=== PATIENT | female | born 1995 | race Caucasian/White ===

== ENCOUNTER 2020-11-08 21:41 | Emergency (ER) | payer BC, SELFPAY ==
[2020-11-08 21:48] VITALS: BP 103/66; PULSE 86; RESP 18; TEMP 36.2; O2SAT 99
--- NOTE | 2020-11-08 23:42 | ED.SKABFB ---
HPI - Skin/Abscess/Foreign Bdy General Chief complaint: Skin/Abscess/Foreign Body Stated complaint: infected skin tag removal site Time Seen by Provider: 11/08/20 23:19 Source: patient Mode of arrival: ambulatory Limitations: no limitations History of Present Illness HPI narrative: This is a 24 year old female with history of DM 1 who presents for evaluation of possible skin infection. She states 1 week ago she had a skin tag removed from under her right breast. She states this was performed by a surgeon with [facility]. She noticed 2 days she was having increasing pain at site of skin tag removal. She describes it has burning pain. She denies purulent drainage, fever, chills, nausea, vomiting or weakness. She states her blood sugar is normally poorly control. Related Data Allergies Allergy/AdvReac Type Severity Reaction Status Date / Time No Known Allergies Allergy Verified 11/08/20 23:42 Review of Systems Review of Systems: All systems reviewed & are unremarkable except as noted in HPI and below Constitutional: Constitutional: Denies chills and Denies fever(s) Cardiovascular: Cardiovascular: Denies chest pain Respiratory: Respiratory: Denies cough and Denies dyspnea Gastrointestinal: Gastrointestinal: Denies abdominal pain, Denies diarrhea, Denies nausea and Denies vomiting PMF Past Medical History Medical History (Updated 11/08/20 @ 23:51 by Vale Dela Cruz MD) Diabetes mellitus type 1 Surgical History Surgical History (Updated 11/08/20 @ 23:43 by Vale Dela Cruz MD) No pertinent past surgical history Exam Const: General: healthy appearing, no acute distress and alert Orientation/consciousness: patient oriented x3 Eyes: EOM: EOMs intact bilaterally Chest: Chest palpation & inspection: normal inspection of the chest Resp: Effort & Inspection: normal respiratory effort Skin: Other: There is small wound under right breast along bra line that is approximately 1 cm. There is mild erythema surrounding with newman color wound no drainage. No fluctuance, no induration Neuro: General: patient oriented x3 and moves all extremities Extrem: General: normal to inspection Psych: Mental Status: mental status grossly normal Affect: normal affect Course Reevaluation(s) Reevaluation #1: I have discussed with patient that she will be treated with antibiotics. She is aware she will need to follow up with her surgeon for wound reevaluation. She appears well. Date: 11/08/20 Time: 23:48 Vital Signs Vital signs: Vital Signs Temperature 97.2 F L 11/08/20 21:48 Pulse Rate 86 11/08/20 21:48 Respiratory Rate 18 11/08/20 21:48 Blood Pressure 103/66 11/08/20 21:48 Pulse Oximetry 99 11/08/20 21:48 Temperature 97.4 F L 11/09/20 00:43 Pulse Rate 78 11/09/20 00:43 Respiratory Rate 16 11/09/20 00:43 Blood Pressure 112/73 11/09/20 00:43 Pulse Oximetry 99 11/09/20 00:43 Discharge Plan Discharge Clinical Impression: Infected wound Patient Disposition: Home, Self-Care Condition: Stable Instructions: Antibiotic Form, Surgical Site Infections (ED) Additional Instructions: Please call your primary care provider or your surgeon tomorrow to arrange for reevaluation of your wound within the next 3 days. Take medication as prescribed. If you develop fever, weakness, vomiting or worsening symptoms you will need to go to an ER. Continue to clean your wound wit mild soap and water. Apply bandage to prevent rubbing from your bra. Prescriptions: New sulfamethoxazole-trimethoprim [Bactrim DS] 800-160 mg tablet 1 tablet PO Q12H Qty: 20 RF: 0 Follow-up/Referrals: UNKNOWN,DOCTOR [Primary Care Provider] -
[2020-11-09 00:43] VITALS: BP 112/73; PULSE 78; RESP 16; TEMP 36.3; O2SAT 99
== END 2020-11-09 00:44 | disposition home or self-care (01) ==
PROVIDERS: Emergency Provider General Practice
DX: T81.41XA Infection following a procedure, superficial incisional surgical site, initial encounter (principal); E10.9 Type 1 diabetes mellitus without complications
CPT/HCPCS: 99283; A9270

== ENCOUNTER 2020-11-17 20:38 | Emergency (ER) | payer BC, SELFPAY ==
[2020-11-17] VITALS (8 sets, daily range): BP systolic 100–120; BP diastolic 61–71; PULSE 75–97; RESP 13–26; TEMP 35.9; O2SAT 96–99
--- NOTE | ~2020-11-17 | XR_ITS ---
EXAMINATION: XR chest 2V DATE: 11/17/2020 21:44 INDICATION: Left-sided chest pain TECHNIQUE: PA and lateral views of the chest are obtained. COMPARISON: None available FINDINGS: The lungs are free of acute opacities. There is no pleural effusion or pneumothorax. The ca rdiomediastinal silhouette is normal. The visualized bones and soft tissues are unremarkable. IMPRESSION: 1. No acute cardiopulmonary abnormality. Reviewed, dictated and finalized at location A.
--- NOTE | 2020-11-17 20:55 | PC.NURSE ---
Patient reporting that her blood sugars have been running in the 300-400 range-she takes insulin but has not been checking blood regularly because I'm low on strips and have to wait for insurance .
--- NOTE | 2020-11-17 21:34 | ECG_ITS ---
Measurements Intervals Petros Rate: 93 P: 55 MI: 157 QRS: 43 QRSD: 90 T: 31 QT: 338 QTc: 421 Interpretive Statements SINUS RHYTHM POSSIBLE LEFT ATRIAL ENLARGEMENT MINIMAL Q WAVES- ANTEROLAT/INF LEADS NONSPECIFIC ST ELEVATION IN DIFFUSE LEADS BASELINE ARTIFACT- V1 BORDERLINE ECG Electronically Signed On 11-18-2020 7:13:28 CDT by Ming Wheat D.O.
--- NOTE | 2020-11-17 21:46 | PC.NURSE ---
verbal report to Byron-care of patient turned over
[2020-11-17 22:15] LABS: Basophils Percent Auto 0.4 % (0.2-1.2); Eosinophils Absolute Auto 0.1 K/mm3 (0-0.3); Eosinophils Percent Auto 1.5 % (0-4.4); Hemoglobin 14.1 g/dL (12.0-15.0); Immature Granulocyte Absolute 0.01 K/mm3 (0.00-0.031); Immature Granulocyte Percent A 0.2 % (0-0.5); Immature Platelet Fraction Pct 13.6 % (0.9-11.2); Lymphocytes Percent Auto 30.3 % (18.3-44.2); Mean Corpuscular HGB Conc 34.4 g/dl (32-36); Mean Corpuscular Hemoglobin 29.4 pg (26-34); Mean Corpuscular Volume 85.6 fl (80-100); Mean Platelet Volume 13.2 fl (7.4-10.4); Monocytes Absolute Auto 0.4 K/mm3 (0.1-0.6); Neutrophils Absolute Auto 2.8 K/mm3 (1.3-6.7); Neutrophils Percent Auto 59.6 % (45.5-73.1); Platelet Count Result 179 k/mm3 (150-375); Red Blood Count 4.79 M/mm3 (4.2-5.4); Red Cell Distribution Width 12.8 % (11.5-14.5); White Blood Count 4.6 K/mm3 (4.5-10.0)
[2020-11-17] MEDS: KETOROLAC (*BKC) 60 MG/2 ML VIAL IM (22:20)
[2020-11-17 22:23] LABS: Potassium 4.4 mmol/L (3.4-5.0)
[2020-11-17 22:29] LABS: Anion Gap 16 mmol/L (8-16); Blood Urea Nitrogen 22 mg/dL (7-17); Calcium 10.2 mg/dL (8.4-10.2); Carbon Dioxide 18 mmol/L (22-30); Chloride 97 mmol/L (98-107); Estimated CRCL calculation 66 ml/min; Estimated Glomerular Filt Rate > 60; Sodium 131 mmol/L (137-145)
[2020-11-17 22:38] LABS: Glucose 623 mg/dL (65-105)
[2020-11-17 22:50] LABS: D Dimer 0.27 ug/mL (<0.48)
--- NOTE | 2020-11-17 23:01 | ED.GENADULT ---
HPI - General Adult General Chief complaint: Unspecified Stated complaint: left rib pain, right leg pain Time Seen by Provider: 11/17/20 20:57 History of Present Illness HPI narrative: Patient is a 24-year-old female who presents ER with left-sided rib pain and right thigh pain. Reports rib pain began today and its intermittent in discomfort. Last 5 minutes at a time. No radiation. Not worsened by taking deep breaths or coughing or exertion. Has not taking pain medication outside of Tylenol. No runny nose/sore throat/productive cough. No hemoptysis. No lower extremity swelling. Patient reports 3 days ago she started having right thigh burning that gets better when she presses her hand against her thigh. No low back pain or trauma. No weakness or numbness lower extremities. Patient reports frequent urination that she thinks is related to her blood sugar. No dysuria or flank pain. Related Data Home Medications Medication Instructions Recorded Confirmed insulin aspart U-100 unit SUBCUT 11/17/20 insulin lispro 11/17/20 Allergies Allergy/AdvReac Type Severity Reaction Status Date / Time No Known Allergies Allergy Verified 11/17/20 20:42 Review of Systems Review of Systems: All systems reviewed & are unremarkable except as noted in HPI and below Constitutional: Constitutional: Denies chills and Denies fever(s) Cardiovascular: Cardiovascular: Reports chest pain (chest wall under left breast), Denies chest pain with activity, Denies rapid heart rate and Denies pedal edema Respiratory: Respiratory: Denies cough, Denies hemoptysis, Denies pain on inspiration and Denies dyspnea Gastrointestinal: Gastrointestinal: Denies abdominal pain, Denies nausea and Denies vomiting Genitourinary: Genitourinary: Reports nocturia, Denies dysuria and Denies flank pain PMFSH Past Medical History Medical History (Updated 11/18/20 @ 00:28 by Alexandru Longoria MD) Diabetes mellitus type 1 Surgical History Surgical History (Updated 11/08/20 @ 23:43 by Vale Dela Cruz MD) No pertinent past surgical history Social History Social History Gender identity (if verbalized by the patient): Female Sexual Orientation (if Verbalized by the Patient): Straight or Heterosexual Exam Narrative: Exam Narrative: GENERAL: Well-appearing, well-nourished, and in no acute distress. HEAD: Normocephalic, atraumatic. ENT: Mucous membranes moist. CHEST: Clear to auscultation. No respiratory distress. Nontender. HEART: Regular rate and rhythm. Normal peripheral pulses. EXTREMITIES: Normal range of motion. No edema. SKIN: Warm, dry, no rash. NEURO: Alert and oriented x3. PSYCH: Normal mood and affect. Course Course Emergency Course: Burning in thigh improved as sugar is come down. No longer having chest pain. Symptoms felt to be related to patient's hyperglycemia and dehydration. She will contact her PCP to follow-up and discuss better blood sugar management. Vital Signs Vital signs: Vital Signs Temperature 96.6 F L 11/17/20 20:40 Pulse Rate 79 11/17/20 20:40 Respiratory Rate 18 11/17/20 20:40 Blood Pressure 120/69 11/17/20 20:40 Pulse Oximetry 96 11/17/20 20:40 Temperature 96.6 F L 11/17/20 20:40 Pulse Rate 76 11/18/20 00:01 Respiratory Rate 22 H 11/18/20 00:01 Blood Pressure 98/52 L 11/18/20 00:01 Pulse Oximetry 99 11/18/20 00:01 Medical Decision Making Vital Signs Vital Signs: Vital Signs Temperature 96.6 F L 11/17/20 20:40 Pulse Rate 79 11/17/20 20:40 Respiratory Rate 18 11/17/20 20:40 Blood Pressure 120/69 11/17/20 20:40 Pulse Oximetry 96 11/17/20 20:40 Temperature 96.6 F L 11/17/20 20:40 Pulse Rate 76 11/18/20 00:01 Respiratory Rate 22 H 11/18/20 00:01 Blood Pressure 98/52 L 11/18/20 00:01 Pulse Oximetry 99 11/18/20 00:01 Lab Data Result diagrams: 11/17/20 22:05 11/17/20 22:04 Labs: Lab Results 11/17/20
[2020-11-17 23:08] LABS: Alveolar/Arterial O2 Gradient 16.2 mmHg; Carboxyhemoglobin 0.6 % THb (0-2.0); Fractional Inspired Oxygen 21 %; HCO3 ABG 19.3 mEq/l (22.0-26.0); Methemoglobin ABG 0.4 %THb (0-1.5); Oxygen Content ABG 19.4 %vol (16.0-22.0); Oxygen Saturation ABG 97.5 % (95.0-100.0); Oxyhemoglobin 96.1 % THb (90.0-100.0); PCO2 ABG 30.7 mmHg (35.0-45.0); PO2 ABG 96.8 mmHg (80.0-100.0); PO2 FiO2 Ratio Arterial Blood 4.61 %; Reduced Hemoglobin 2.9 %THb (0-5.0); Site Drawn LEFT RADIAL; Total Hemoglobin 14.3 g/dL (12.0-18.0); pH ABG 7.416 (7.350-7.450)
[2020-11-17 23:09] LABS: Device ROOM AIR; Modified Allen's Test Pass
[2020-11-17] MEDS: SODIUM CHLORIDE 0.9% IV 1,000 ML 999 ML IV CONT (23:15)
[2020-11-17 23:19] LABS: Glucose Point of Care 354 (65-105)
--- NOTE | 2020-11-17 23:23 | PC.NURSE ---
Bedside glucose ordered prior to insulin administration. Blood glucose 354 at bedside, SERGO Longoria notified. Per SERGO Longoria, do not give insulin IVP but administer IV fluids.
[2020-11-17 23:24] LABS: Appearance Urine Clear (Clear); Bilirubin Urine Negative (Negative); Blood Urine Negative (Negative); Glucose Urine UA 3+ mg/dL (Negative); Ketones Urine 2+ mg/dL (Negative); Leukocyte Esterase Ur Negative LEU/UL (Negative); Nitrate Urine Negative (Negative); Protein Urine Negative (Negative); Specific Grav Ur 1.015 (1.001-1.035); Urobilinogen Urine 0.2 mg/dL (<2.0)
[2020-11-17 23:33] LABS: Add Urine Microscopic? YES; Color Urine Light Yellow (Yellow); RBC Urine 0-2 /hpf (0-2); Squamous Epithelial Cell Urine Moderate /hpf (Few); WBC Urine 0-3 /hpf
[2020-11-18] VITALS: PULSE 75; RESP 21; O2SAT 100
[2020-11-18 00:01] VITALS: BP 98/52; PULSE 76; RESP 22; O2SAT 99
--- NOTE | 2020-11-18 00:34 | PC.NURSE ---
Per EDLuis Collazo no repeat glucose needed.
[2020-11-18 00:44] VITALS: BP 112/74; PULSE 80; RESP 14; O2SAT 100
== END 2020-11-18 00:44 | disposition home or self-care (01) ==
PROVIDERS: Emergency Provider Emergency Medicine
DX: R07.89 Other chest pain (principal); E10.65 Type 1 diabetes mellitus with hyperglycemia; E10.40 Type 1 diabetes mellitus with diabetic neuropathy, unspecified; Z79.4 Long term (current) use of insulin; R94.31 Abnormal electrocardiogram [ECG] [EKG]
CPT/HCPCS: 36415; 36600; 71046; 80048; 81001; 82375; 82805; 82948; 83050; 85025; 85055; 85380; 93005; 99283; J1885; J7030

== ENCOUNTER 2020-12-29 19:29 | Emergency (ER) | payer BC, SELFPAY ==
[2020-12-29 19:33] VITALS: BP 125/82; PULSE 103; RESP 16; TEMP 36.2; O2SAT 99
[2020-12-29 20:35] VITALS: BP 128/84; PULSE 98; RESP 20; TEMP 37.1; O2SAT 97
--- NOTE | 2020-12-29 20:55 | ED.GENADULT ---
HPI - General Adult General Chief complaint: Skin/Abscess/Foreign Body Stated complaint: hives all overbody Time Seen by Provider: 12/29/20 20:17 Source: patient and RN notes reviewed Mode of arrival: ambulatory Limitations: no limitations History of Present Illness HPI narrative: Patient is a 25-year-old female who presents with bug bites over her extremities and torso her child also has the same they were staying at a hotel patient is unsure as to the etiology she denies any other complaints presents in no distress notes itching has not taken anything for her symptoms Related Data Home Medications Medication Instructions Recorded Confirmed insulin aspart U-100 unit SUBCUT 11/17/20 insulin lispro 11/17/20 Allergies Allergy/AdvReac Type Severity Reaction Status Date / Time No Known Allergies Allergy Verified 12/29/20 20:37 Review of Systems Review of Systems: All systems reviewed & are unremarkable except as noted in HPI and below PMFSH Past Medical History Medical History Diabetes mellitus type 1 Surgical History Surgical History No pertinent past surgical history Social History Social History Gender identity (if verbalized by the patient): Female Exam Narrative: Exam Narrative: GENERAL: Well-appearing, well-nourished, and in no acute distress. HEAD: Normocephalic, atraumatic. EYES: PERRLA and EOMI. ENT: Nares clear, no rhinorrhea or epistaxis. Mucous membranes moist. CHEST: Clear to auscultation. No respiratory distress. No wheezes rales or rhonchi HEART: Regular rate and rhythm. No murmur heard. EXTREMITIES: Normal range of motion. No edema. SKIN: Warm, dry, patient with macular bites over the legs and torso and linear patterns consistent with insect bites NEURO: No focal deficits. Alert and oriented x3. PSYCH: Normal mood and affect. Course Course Emergency Course: Patient with bites consistent with either fleas or bedbugs Vital Signs Vital signs: Vital Signs Temperature 97.2 F L 12/29/20 19:33 Pulse Rate 103 H 12/29/20 19:33 Respiratory Rate 16 12/29/20 19:33 Blood Pressure 125/82 12/29/20 19:33 Pulse Oximetry 99 12/29/20 19:33 Temperature 98.7 F 12/29/20 20:35 Pulse Rate 98 12/29/20 20:35 Respiratory Rate 20 12/29/20 20:35 Blood Pressure 128/84 12/29/20 20:35 Pulse Oximetry 97 12/29/20 20:35 Medical Decision Making MDM Narrative Medical decision making narrative: Patient will be discharged at this time Vital Signs Vital Signs: Vital Signs Temperature 97.2 F L 12/29/20 19:33 Pulse Rate 103 H 12/29/20 19:33 Respiratory Rate 16 12/29/20 19:33 Blood Pressure 125/82 12/29/20 19:33 Pulse Oximetry 99 12/29/20 19:33 Temperature 98.7 F 12/29/20 20:35 Pulse Rate 98 12/29/20 20:35 Respiratory Rate 20 12/29/20 20:35 Blood Pressure 128/84 12/29/20 20:35 Pulse Oximetry 97 12/29/20 20:35 Discharge Plan Discharge Clinical Impression: Insect bites Patient Disposition: Home, Self-Care Condition: Stable Instructions: Antibiotic Form, Bed Bugs (ED) Additional Instructions: Follow-up with primary care as needed Return if symptoms worsen or concerns Prescriptions: No Action sulfamethoxazole-trimethoprim [Bactrim DS] 800-160 mg tablet 1 tablet PO Q12H Qty: 20 RF: 0 insulin lispro 100 unit/mL solution RF: 0 insulin aspart U-100 100 unit/mL (3 mL) insulin pen SUBCUT RF: 0 Follow-up/Referrals: PHYSICIAN,TRIM TECHNICIAN [Primary Care Provider] - Eran Crum MD [Physician] -
== END 2020-12-29 21:00 | disposition home or self-care (01) ==
PROVIDERS: Emergency Provider Emergency Medicine
DX: S20.96XA Insect bite (nonvenomous) of unspecified parts of thorax, initial encounter (principal); S70.362A Insect bite (nonvenomous), left thigh, initial encounter; S70.361A Insect bite (nonvenomous), right thigh, initial encounter; E10.9 Type 1 diabetes mellitus without complications; W57.XXXA Bitten or stung by nonvenomous insect and other nonvenomous arthropods, initial encounter
CPT/HCPCS: 99281

== ENCOUNTER 2021-09-07 11:02 | Outpatient (RCR) | payer BC, SELFPAY ==
[2021-09-07 11:07] VITALS: BMI 26.6
[2021-09-07 11:15] VITALS: BMI 26.6
== END 2021-11-27 12:32 | disposition home or self-care (01) ==
LOC: ANHDMC 11:02
PROVIDERS: PCP Physician Assistant; Visit Provider Internal Medicine Endocrinology, Diabetes & Metabolism
DX: E10.65 Type 1 diabetes mellitus with hyperglycemia (principal); Z71.3 Dietary counseling and surveillance
CPT/HCPCS: 97802; 99199